=== PATIENT | female | born 2005 | race Two or more races ===

== ENCOUNTER 2025-02-15 12:47 | Emergency (ER) | payer OTHER ==
[~2025-02-15] VITALS: Ht 172.7 cm; Wt 72.6 kg
[~2025-02-15 12:47] MED LIST: ONDANSETRON ODT4 MG PO; PEPCID AC20 MG PO
[2025-02-15] MEDS ORDERED: ORPHENADRINE CITRATE 30 MG/ML AMPUL IM ONE (13:15)
[2025-02-15] MEDS ORDERED: KETOROLAC TROMETHAMINE 60 MG VIAL IM ONE (13:15)
[2025-02-15] MEDS ORDERED: CEFTRIAXONE SODIUM 1,000 MG VIAL IM ONE (13:30)
[2025-02-15] MEDS ORDERED: TAMSULOSIN HCL 0.4 MG CAP PO ONE (13:30)
[2025-02-15] MEDS ORDERED: 0.9 % SODIUM CHLORIDE 1,000 ML IV ONE (14:00)
[2025-02-15] MEDS ORDERED: ONDANSETRON HCL 2 MG/ML VIAL IV ONE (14:00)
[2025-02-15 14:27] LABS: BASO % 0.6 % (0.1-1.2); EOS # 0.06 (0.04-0.54); EOS % 0.6 % (0.7-7.0); LYMPH # 0.54 (1.18-3.74); LYMPH % 5.8 % (19.3-53.1); MEAN PLATELET VOLUME 9.50 fl (9.4-12.4); MONO # 1.05 (0.24-0.82); MONO % 11.4 % (4.7-12.5); NEUT # 7.51 (1.56-6.13); NEUT % 81.3 % (34.0-71.1); RED CELL DISTRIBUTION WIDTH 15.4 % (11.6-14.4)
[2025-02-15 14:36] LABS: URINE APPEARANCE Clear; URINE BILIRRUBIN Negative (NEGATIVE); URINE BLOOD Small; URINE COLOR Yellow; URINE GLUCOSE Negative (NEGATIVE); URINE KETONE Trace (NEGATIVE); URINE LEUKOCYTE Negative; URINE NITRATE Negative; URINE PROTEIN 30 (NEGATIVE); URINE UROBILINOGEN 0.2 E.U./dl
[2025-02-15 14:38] LABS: ALT/SGPT 34 U/L (12-78); AST/SGOT 27 U/L (15-37); BILIRUBIN TOTAL 0.48 mg/dL (0.3-1.2); BUN CREA RATIO 12 (7.0-25.0); CREATININE SERUM 0.85 mg/dL (0.55-1.02); GFR 84.43; GLOBULINA 4.3 G/DL (2.4-3.5); GLUCOSE FASTING 103 mg/dL (65-100); OSMOLALITY SERUM 275 MOSM/KG (275-295)
[2025-02-15 14:40] LABS: URINE BACTERIA 560.3 uL (0.0-1933); URINE EPITHELIAL CELLS 14.7 uL (0.0-38.8); URINE RBC 18.6 uL (0.0-20.8); URINE WBC 8.9 uL (0.0-23.2)
[2025-02-15 14:46] LABS: URINE CAST 0.14 uL (0.0-1.40)
[2025-02-15 15:10] LABS: HCG QUANTITATIVE < 1 mUI/mL (1-3)
[2025-02-15] MEDS ORDERED: IBU600 MG PO (17:17)
[2025-02-15] MEDS ORDERED: PEPCID AC20 MG PO (17:17)
[2025-02-15] MEDS ORDERED: ONDANSETRON HCL4 MG PO (17:17)
[2025-02-15] MEDS ORDERED: ABATINEX680 MG PO (17:17)
== END 2025-02-15 16:48 | disposition home or self-care (01) ==
LOC: ER 12:47
PROVIDERS: General Practice
DX: K52.9 Noninfective gastroenteritis and colitis, unspecified (principal); M54.9 Dorsalgia, unspecified; M79.604 Pain in right leg; M79.605 Pain in left leg; R53.1 Weakness